=== PATIENT | female | born 1995 | race Two or more races ===

== ENCOUNTER 2025-01-28 20:58 | Inpatient (IN) | payer OTHER ==
[~2025-01-28] VITALS: Ht 154.9 cm; Wt 77.6 kg
[~2025-01-28 20:58] MED LIST: IBUPROFEN800 MG PO
[2025-01-28 21:07] VITALS: BP 105/66
[2025-01-28] MEDS ORDERED: TERBUTALINE SULFATE 1 MG/ML AMPUL SUBCUTANEO SCH (21:07)
[2025-01-28] MEDS ORDERED: NIFEDIPINE 30 MG TAB.SA.OSM PO SCH (21:07)
[2025-01-28] MEDS ORDERED: RINGERS SOLUTION,LACTATED 1,000 ML IV SCH (21:15)
[2025-01-28 21:41] LABS: BASO % 0.3 % (0.1-1.2); EOS # 0.12 (0.04-0.54); EOS % 1.0 % (0.7-7.0); LYMPH # 2.01 (1.18-3.74); LYMPH % 17.5 % (19.3-53.1); MEAN PLATELET VOLUME 9.00 fl (9.4-12.4); MONO # 0.72 (0.24-0.82); MONO % 6.3 % (4.7-12.5); NEUT # 8.49 (1.56-6.13); NEUT % 73.9 % (34.0-71.1); RED CELL DISTRIBUTION WIDTH 13.0 % (11.6-14.4)
[2025-01-28 21:43] LABS: URINE APPEARANCE Clear; URINE BILIRRUBIN Negative (NEGATIVE); URINE BLOOD Large; URINE COLOR Yellow; URINE GLUCOSE Negative (NEGATIVE); URINE KETONE Negative (NEGATIVE); URINE LEUKOCYTE Negative; URINE NITRATE Negative; URINE PROTEIN Negative (NEGATIVE); URINE UROBILINOGEN 0.2 E.U./dl
[2025-01-28 21:44] LABS: URINE BACTERIA 176.3 uL (0.0-1933); URINE EPITHELIAL CELLS 5.0 uL (0.0-38.8); URINE RBC 2.3 uL (0.0-20.8); URINE WBC 3.8 uL (0.0-23.2)
[2025-01-28 21:49] LABS: URINE CAST 0.00 uL (0.0-1.40)
[2025-01-28 22:00] LABS: INR 0.95
[2025-01-28 22:05] LABS: ALT/SGPT 14.0 U/L (12-78); AST/SGOT 6.0 U/L (15-37); BILIRUBIN TOTAL 0.12 mg/dL (0.3-1.2); BUN CREA RATIO 12.0 (7.0-25.0); CREATININE SERUM 0.6 mg/dL (0.55-1.02); GFR 117.38; GLOBULINA 3.9 G/DL (2.4-3.5); GLUCOSE FASTING 130.0 mg/dL (65-100); OSMOLALITY SERUM 279.0 MOSM/KG (275-295)
[2025-01-28] MEDS ORDERED: SOD FERRIC GLUC COMPLX/SUCROSE 62.5 MG/5 ML AMPUL IV SCH (22:05)
[2025-01-28] MEDS ORDERED: IRON FUM,PS/FOLIC/BCOMP,C NO.9 1 CAP CAPSULE PO SCH (22:06)
[2025-01-28 23:15] VITALS: BP 96/61
[2025-01-29] VITALS (7 sets, daily range): BP systolic 93–111; BP diastolic 53–61; O2SAT 97
[2025-01-29] MEDS ORDERED: PNV,CALCIUM 72/IRON/FOLIC ACID 1 TAB TABLET PO SCH (09:00)
[2025-01-29] MEDS ORDERED: PROGESTERONE VAG NR (13:55)
[2025-01-29] MEDS ORDERED: PROGESTERONE VAG SCH (21:00)
[2025-01-30 03:24] VITALS: BP 90/60
[2025-01-30 07:27] VITALS: BP 118/95
[2025-01-30] MEDS ORDERED: PRENATABS RX T1 EACH PO (07:44)
[2025-01-30 11:26] VITALS: BP 108/68
[2025-01-30 15:25] VITALS: BP 95/59
[2025-01-30 19:43] VITALS: BP 112/69; O2SAT 100
[2025-01-30 23:37] VITALS: BP 95/58
[2025-01-31 01:45] VITALS: BP 95/61
[2025-01-31 07:35] VITALS: BP 97/62
[2025-01-31 09:22] LABS: BASO % 0.3 % (0.1-1.2); EOS # 0.09 (0.04-0.54); EOS % 0.9 % (0.7-7.0); LYMPH # 1.42 (1.18-3.74); LYMPH % 13.9 % (19.3-53.1); MEAN PLATELET VOLUME 9.10 fl (9.4-12.4); MONO # 0.45 (0.24-0.82); MONO % 4.4 % (4.7-12.5); NEUT # 8.20 (1.56-6.13); NEUT % 79.9 % (34.0-71.1); RED CELL DISTRIBUTION WIDTH 13.5 % (11.6-14.4)
[2025-01-31 12:28] VITALS: BP 95/57
[2025-01-31 15:38] VITALS: BP 103/69
[2025-01-31 19:32] VITALS: BP 98/63
[2025-01-31 23:43] VITALS: BP 91/52
[2025-02-01] MEDS ORDERED: NIFEDIPINE 30 MG TAB.SA.OSM PO SCH (01:00)
[2025-02-01 04:11] VITALS: BP 98/61
[2025-02-01 06:28] VITALS: BP 89/59; O2SAT 98
[2025-02-01 12:02] VITALS: BP 98/66
[2025-02-01 15:24] VITALS: BP 109/65
[2025-02-01 19:54] VITALS: BP 107/70
[2025-02-01 23:31] VITALS: BP 93/60
[2025-02-02 03:23] VITALS: BP 101/61
[2025-02-02 06:22] VITALS: BP 112/68; O2SAT 100
[2025-02-02 06:55] LABS: BASO % 0.4 % (0.1-1.2); EOS # 0.19 (0.04-0.54); EOS % 1.7 % (0.7-7.0); LYMPH # 2.12 (1.18-3.74); LYMPH % 18.6 % (19.3-53.1); MEAN PLATELET VOLUME 9.10 fl (9.4-12.4); MONO # 0.57 (0.24-0.82); MONO % 5.0 % (4.7-12.5); NEUT # 8.27 (1.56-6.13); NEUT % 72.7 % (34.0-71.1); RED CELL DISTRIBUTION WIDTH 13.8 % (11.6-14.4)
[2025-02-02 11:29] VITALS: BP 113/73
[2025-02-02] MEDS ORDERED: NIFEDIPINE 30 MG TAB.SA.OSM PO SCH (11:45)
[2025-02-02] MEDS ORDERED: IRON FUM,PS/FOLIC/BCOMP,C NO.9 1 CAP CAPSULE PO SCH (11:46)
[2025-02-02] MEDS ORDERED: TERBUTALINE SULFATE 5 MG TABLET PO SCH (12:00)
== END 2025-02-02 12:00 | disposition home or self-care (01) | DRG 833 ==
LOC: LDR 20:58
PROVIDERS: ADMIT Specialist; ATTEND Specialist
PROC: 4A1HXCZ Monitoring of Products of Conception, Cardiac Rate, External Approach (ICD-10-PCS; principal; 2025-01-28)
PROC: BY4CZZZ Ultrasonography of Second Trimester, Single Fetus (ICD-10-PCS; 2025-01-28)
PROC: BU4CZZZ Ultrasonography of Uterus and Ovaries (ICD-10-PCS; 2025-01-28)
PROC: BY4FZZZ Ultrasonography of Third Trimester, Single Fetus (ICD-10-PCS; 2025-02-01)
DX: O60.03 Preterm labor without delivery, third trimester (principal); O99.013 Anemia complicating pregnancy, third trimester; D64.9 Anemia, unspecified; Z3A.28 28 weeks gestation of pregnancy

== ENCOUNTER 2025-03-28 13:17 | Inpatient (IN) | payer OTHER ==
[~2025-03-28] VITALS: Ht 154.9 cm; Wt 2.3 kg
[2025-03-28 13:16] VITALS: BP 121/74
[~2025-03-28 13:17] MED LIST changes: +PRENATABS RX T1 EACH PO
[2025-03-28] MEDS ORDERED: REXULTI0.25 MG PO (13:40)
[2025-03-28] MEDS ORDERED: RINGERS SOLUTION,LACTATED 1,000 ML IV SCH (13:45)
[2025-03-28 14:24] LABS: BASO % 0.2 % (0.1-1.2); EOS # 0.05 (0.04-0.54); EOS % 0.4 % (0.7-7.0); LYMPH # 1.15 (1.18-3.74); LYMPH % 8.3 % (19.3-53.1); MEAN PLATELET VOLUME 9.70 fl (9.4-12.4); MONO # 0.64 (0.24-0.82); MONO % 4.6 % (4.7-12.5); NEUT # 11.90 (1.56-6.13); NEUT % 86.1 % (34.0-71.1); RED CELL DISTRIBUTION WIDTH 13.8 % (11.6-14.4)
[2025-03-28 14:30] LABS: URINE APPEARANCE Clear; URINE BILIRRUBIN Negative (NEGATIVE); URINE BLOOD NHT; URINE COLOR Yellow; URINE GLUCOSE Negative (NEGATIVE); URINE KETONE Trace (NEGATIVE); URINE LEUKOCYTE Negative; URINE NITRATE Negative; URINE PROTEIN Trace (NEGATIVE); URINE UROBILINOGEN 0.2 E.U./dl
[2025-03-28 14:46] LABS: URINE BACTERIA FEW; URINE EPITHELIAL CELLS 0-4 /HPF; URINE RBC 0-3 /HPF; URINE WBC 0-2 /hpf
[2025-03-28 14:47] LABS: URINE MUCUS SCANT
[2025-03-28 14:54] LABS: INR 0.95
[2025-03-28 15:16] VITALS: BP 119/70
[2025-03-28] MEDS ORDERED: CEFAZOLIN SODIUM 1,000 MG VIAL IV ONE (16:00)
[2025-03-28] MEDS ORDERED: KETOROLAC TROMETHAMINE 30 MG VIAL IM SCH (18:45)
[2025-03-28] MEDS ORDERED: CEFAZOLIN SODIUM 1,000 MG VIAL IV SCH (18:45)
[2025-03-28] MEDS ORDERED: PROMETHAZINE HCL 25 MG/ML AMPUL IV SCH (18:45)
[2025-03-28] MEDS ORDERED: OXYTOCIN 10 UNITS/ML VIAL IV ONE (20:15)
[2025-03-28] MEDS ORDERED: ERYTHROMYCIN BASE OPHT 1GM EACH TUBE OP ONE (20:15)
[2025-03-28 21:13] VITALS: BP 103/67; O2SAT 100
[2025-03-29 00:27] VITALS: BP 109/67
[2025-03-29 07:34] LABS: BASO % 0.3 % (0.1-1.2); EOS # 0.05 (0.04-0.54); EOS % 0.4 % (0.7-7.0); LYMPH # 2.21 (1.18-3.74); LYMPH % 18.9 % (19.3-53.1); MEAN PLATELET VOLUME 9.90 fl (9.4-12.4); MONO # 0.77 (0.24-0.82); MONO % 6.6 % (4.7-12.5); NEUT # 8.56 (1.56-6.13); NEUT % 73.4 % (34.0-71.1); RED CELL DISTRIBUTION WIDTH 13.9 % (11.6-14.4)
[2025-03-29] MEDS ORDERED: KETOROLAC TROMETHAMINE 30 MG VIAL IM SCH (08:00)
[2025-03-29 08:12] VITALS: BP 104/69
[2025-03-29] MEDS ORDERED: NAPROXEN 500 MG TABLET PO SCH (09:00)
[2025-03-29] MEDS ORDERED: CEFAZOLIN SODIUM 1,000 MG VIAL IV SCH (12:00)
[2025-03-29] MEDS ORDERED: PROMETHAZINE HCL 25 MG/ML AMPUL IV SCH (12:00)
[2025-03-29 16:49] VITALS: BP 118/78
[2025-03-29] MEDS ORDERED: IRON FUM,PS/FOLIC/BCOMP,C NO.9 1 CAP CAPSULE PO STA (18:04)
[2025-03-30] VITALS: BP 115/69
[2025-03-30 08:30] VITALS: BP 106/66
[2025-03-30] MEDS ORDERED: IRON FUM,PS/FOLIC/BCOMP,C NO.9 1 CAP CAPSULE PO SCH (09:00)
[2025-03-30 17:22] VITALS: BP 130/83
[2025-03-31] VITALS: BP 113/66
[2025-03-31 08:00] VITALS: BP 126/76
== END 2025-03-31 15:26 | disposition home or self-care (01) | DRG 788 ==
LOC: LDR 13:17 → OB/GYN 13:17
PROVIDERS: ADMIT Specialist; ATTEND Specialist
PROC: 4A1HXCZ Monitoring of Products of Conception, Cardiac Rate, External Approach (ICD-10-PCS; 2025-03-28)
PROC: 10D00Z1 Extraction of Products of Conception, Low, Open Approach (ICD-10-PCS; principal; 2025-03-28 16:00)
DX: O32.2XX0 Maternal care for transverse and oblique lie, not applicable or unspecified (principal); Z3A.37 37 weeks gestation of pregnancy; Z37.0 Single live birth